=== PATIENT | female | born 1945 | race Caucasian/White ===

== ENCOUNTER → 2024-12-27 | Outpatient (CLI) | payer MEDICARE, SELFPAY ==
[2024-12-27 11:16] LABS: Color, Urine Yellow (Yellow); Glucose, Dipstick Normal (Normal); Ketone-Dipstick Negative (Negative); Leukocyte Esterase-Dipstick 25 /ul (Negative); Nitrite-Dipstick Positive (Negative); Occult Blood-Urine 25 /ul (Negative); Protein-Dipstick 30 mg/dl (Negative); Specific Gravity, Urine 1.010 (1.002-1.030); Urine Bilirubin Dipstick Negative (Negative)
== END | disposition home or self-care (01) ==
DX: R39.9 Unspecified symptoms and signs involving the genitourinary system (principal)
CPT/HCPCS: 81002; 87077; 87086; 87088

== ENCOUNTER 2025-03-15 08:23 | Emergency (ER) | payer MEDICARE, SELFPAY ==
[2025-03-15 08:26] VITALS: BP 159/70; PULSE 64; RESP 18; TEMP 36.6; O2SAT 98
[2025-03-15 08:28] VITALS: BMI 21.8
--- NOTE | 2025-03-15 08:40 | CT_ITS ---
PROCEDURE: BRAIN/HEAD WITHOUT CONTRAST 03/15/2025 REASON FOR EXAM: FALL TECHNIQUE: Procedure Code: CTBR Modality: CT Procedure: BRAIN/HEAD WITHOUT CONTRAST Coronal and Sagittal reconstruction series were provided. One or more dose reduction techniques were used (e.g., Automated exposure control, adjustment of the mA and/or kV according to patient size, use of iterative reconstruction technique. RADIATION DOSE SUMMARY: CTDlvol: Not provided. DLP: 1103.87 mGycm COMPARISON: None FINDINGS: Brain: Extensive low density in the deep cerebral white matter most likely represents advanced chronic small vessel ischemic disease. CSF Spaces: Moderate generalized cerebral atrophy Sinuses/Mastoids: Bones: No acute osseous abnormality. Left frontal extra-axial mass with calcification measuring up to 2.8 cm, representing a meningioma. Left forehead soft tissue contusion/hematoma. CT/Brain/Head without Contrast IMPRESSION: No acute intracranial abnormality. Left frontal extra-axial mass with calcific ation measuring up to 2.8 cm, representing a meningioma. Left forehead soft tissue contusion/hematoma. Reading Location: [facility]
--- NOTE | 2025-03-15 08:40 | EKG12_ITS ---
Test Reason : FALL Blood Pressure : */* mmHG Vent. Rate : 64 BPM Atrial Rate : 64 BPM P-R Int : 218 ms QRS Dur : 68 ms QT Int : 410 ms P-R-T Axes : 33 -2 29 degrees QTcB Int : 422 ms Sinus rhythm with 1st degree A-V block Otherwise normal ECG Confirmed by Сергей Barahona ([id number]), videotape editor ALEKSEY PINEDA ([id number]) on 03/18/2025 11:24:15 AM Also confirmed by Сергей Barahona ([id number]), videotape editor ALEKSEY PINEDA ([id number]) on 03/19/2025 10:11:46 AM Also confirmed by Сергей Barahona ([id number]), videotape editor ALEKSEY PINEDA ([id number]) on 03/19/2025 10:48:31 AM Referred By: Confirmed By: Сергей Barahona
--- NOTE | 2025-03-15 08:40 | CT_ITS ---
EXAM: CT Cervical Spine Without Intravenous Contrast CLINICAL INDICATION: FALL TECHNIQUE: Axial computed tomography images of the cervical spine without intravenous contrast. This CT exam was performed using one or more of the following dose reduction techniques: automated exposure control, adjustment of the mA and/or kV according to patient size, and/or use of iterative reconstruction technique. COMPARISON: No relevant prior studies available. FINDINGS: VERTEBRAE: Mild reversal cervical spine lordosis. Sclerosis of the left anterior arch of C5. Degenerative facet arthropathy throughout the cervical spine. No acute fracture. DISCS/SPINAL CANAL/NEURAL FORAMINA: Degenerative disc disease lower cervical spine. SOFT TISSUES: Unremarkable. CT/Spine Cervical without Contras IMPRESSION: 1. No acute fracture. 2. Degenerative changes cervical spine as described. Reading Location: [id number]
--- NOTE | 2025-03-15 08:42 | EDS_ITS ---
HPI HPI - Fall History of Present Illness Chief Complaint: Fall Detail of Chief Complaint: Fall Informant: patient and family Narrative Narrative: Patient presents to the emergency department after sustaining a fall this morning. Patient states that she just got in a hurry and lost her balance and fell. witnessed her fall from bed but he is wheelchair-bound so we could not help her. She was able to scoot to a chair and help herself up to a standing position. She had no loss of consciousness. She is not anticoagulated. Noted to have laceration to the left side of her nose and forehead hematoma. Per family member she has history of severe dementia. Patient has been more agitated over the last 4 days and has had decreased sleep. Primary care physician ordered risperidone for her which they have not picked up yet. She denies any chest pain or abdominal pain. Denies weakness or paresthesias in the extremities. [facility] Medical History (Updated 03/15/25 @ 10:[address] Alicia Guillen, ) Anxiety Depression Former smoker Dementia Allergy/AdvReac Type Severity Reaction Status Date / Time aspirin Allergy Intermediate Hives Verified 03/15/25 08:28 Social History Smoking Status: Former smoker ROS ROS ED Review of Systems ROS Unobtainable: other Constitutional Constitutional ED: Reports lethargy; Denies chills, fever(s), sweats or weight loss Eyes Eyes: Denies blurry vision, change in vision or diplopia ENT ENT ED: Denies rhinorrhea or sore throat Cardiovascular Cardiovascular: Denies chest pain, orthopnea or racing heartbeat Respiratory/Chest Respiratory/Chest: Denies cough, dyspnea, dyspnea on exertion, orthopnea or sputum Gastrointestinal Gastrointestinal: Denies abdominal pain, diarrhea, nausea or vomiting Genitourinary Genitourinary ED: Denies dysuria, hematuria or urinary frequency Musculoskeletal Musculoskeletal: Denies arthralgias, back pain, myalgias or neck pain Integumentary Reports other Details: Laceration to her left nose and hematoma left forehead ; Denies abscess, Abrasions or rash Neurologic Neurologic: Reports headache(s); Denies weakness Psychiatric Psychiatric: Denies anxiety, depression or suicidal thoughts Endocrine Endocrinology: Denies polydipsia, polyphagia or polyuria Hematologic/Lymphatic Hematologic/Lymphatic: Denies easy bleeding, easy bruising or lymphadenopathy Allergic/Immunologic Allergic/Immunologic ED: Denies mouth swelling, tongue swelling or urticaria EXAM Physical Exam Const Vital Signs: 03/15/25 08:26 03/15/25 09:11 03/15/25 09:59 Temperature 97.9 F Temperature Source Temporal Pulse Rate 64 62 Respiratory Rate 18 18 Respiratory Effort Normal Blood Pressure 159/70 H 143/65 H Blood Pressure Mean 99 91 Pulse Ox 98 97 Oxygen Delivery Method Room Air Room Air Room Air 03/15/25 10:47 Temperature 97.6 F L Temperature Source Pulse Rate 65 Respiratory Rate 18 Respiratory Effort Blood Pressure 156/67 H Blood Pressure Mean 96 Pulse Ox 100 Oxygen Delivery Method Positive well nourished and well developed General Appearance ED: well developed and NAD HEENT Reports TM's clear and moist mucous membranes HEENT Narrative: 1 cm laceration to the left side of the nose that is well-approximated with no active bleeding. Location is where the patient's eyeglasses sit on her nose. Mild bony tenderness without deformity. No septal hematoma. Patient also has a large hematoma left frontal forehead. normocephalic and atraumatic; Negative for trauma or tenderness Tympanic Membrane ED: Yes TM's clear Eyes PERRL and EOMs intact bilaterally General Eye ED: Negative for pale conjunctiva or scleral icterus Neck no lymphadenopathy, supple and no JVD Neck Narrative: Mild diffuse tenderness. No bony step-offs or depressions. General: Negative for tenderness Chest Wall inspection of chest normal and palpation of chest normal Chest: Negative for tenderness Resp normal respiratory effort and clear to auscultation bilaterally Effort and Inspection: Negative for respiratory distress or pain with movement Auscultation: Negative for rhonchi, wheezes or diminished lung sounds Cardio regular rate, regular rhythm, S1 normal heart sound, S2 normal heart sound and no murmurs Peripheral Pulses: pulses 2+ throughout GI normal to inspection, nondistended, normoactive bowel sounds, soft to palpation, non-tender, non-distended and no masses Back/Spine no CVA tenderness and no thoracic nor lumbar tenderness Extremity normal to inspection General Extremety ED: Negative for edema General Extremity: Negative for edema Neuro oriented x3, CN's II-XII intact bilaterally, no sensory deficits noted and gait normal Sensorium / Orientation: awake, alert, oriented to person, oriented to place and oriented to time Motor Exam: strength 5/5 throughout and strength abnormal Psych mental status grossly normal Skin no rashes or lesions noted and no wounds MDM MDM MDM Narrative Medical decision making narrative: Patient presents with mechanical fall. Evidence of trauma to her head. She is not anticoagulated. CT scan of the brain without contrast showed a meningioma to the left frontal region. No intracranial hemorrhage or skull fracture. She had a left forehead hematoma. CT of the C-spine show degenerative changes with no fractures. CBC with differential obtained showed a white count 6.8 with hemoglobin 13 and platelet count of 187. Chemistries unremarkable. Urinalysis negative for infection. I did use Dermabond skin glue to the left nasal superfi cial laceration. Recommended follow-up care with primary care physician within next 5 to 7 days. Family and patient unaware of the meningioma. Recommended outpatient follow-up initially with primary care physician and if need be with neurosurgery although she apparently has been asymptomatic. Lab Data Attestation: I reviewed the patient's lab results. Labs: Laboratory Results - last 24 hr 03/15/25 03/15/25 09:09 09:30 WBC 6.8 RBC 4.26 Hgb 13.0 Hct 38.9 MCV 91.3 MCH 30.5 MCHC 33.4 RDW Std Deviation 40.7 RDW Coeff of Esteban 12.2 Plt Count 187 MPV 10.0 Immature Gran % (Auto) 0.100 Neut % (Auto) 73.5 H Lymph % (Auto) 15.1 L [place] % (Auto) 5.6 Eos % (Auto) 5.1 H Baso % (Auto) 0.6 Absolute Neuts (auto) 5.0 Absolute Lymphs (auto) 1.03 Nucleated RBC % 0 Sodium 145 Potassium 3.9 Chloride 106 Carbon Dioxide 27.6 Anion Gap 11 BUN 27 H Creatinine 1.12 Estim Creat Clear Calc 35.45 L Est GFR (MDRD) Non-Af 49 L BUN/Creatinine Ratio 24.1 H Glucose 84 Calcium 10.3 Urine Color Yellow Urine Clarity Clear Urine pH 6.0 Ur Specific [place] 1.015 Urine Protein 15 H Urine Glucose (UA) Normal Urine Ketones Negative Urine Occult Blood 10 H Urine Nitrite Negative Urine Bilirubin Negative Urine Urobilinogen Normal Ur Leukocyte Esterase 500 H Urine RBC 0-5 SEEN Urine WBC 0-5 SEEN Ur Squamous Epith Cells 0-5 SEEN Urine Bacteria 1+ Urine Mucus 0 SEEN Radiography Diagnostic Testing: Clinical Impression(s) from Imaging Studies Brain CT 03/15/25 08:40 IMPRESSION: No acute intracranial abnormality. Left frontal extra-axial mass with calcification measuring up to 2.8 cm, representing a meningioma. Left forehead soft tissue contusion/hematoma. Reading Location: [facility] Cervical Spine CT 03/15/25 08:40 IMPRESSION: 1. No acute fracture. 2. Degenerative changes cervical spine as described. Reading Location: [facility] Chest X-Ray 03/15/25 10:00 IMPRESSION: No acute cardiopulmonary process. Reading Location: [facility] 1 view chest x-ray obtained interpreted by myself as no evidence of infiltrate or pneumothorax or acute disease process. Radiology in agreement. EKG Initial EKG: Attestation: I personally reviewed and interpreted this EKG as follows: Comments: Sinus rhythm with rate of 64 bpm with first-degree AV block Discharge Plan Triage Chief Complaint: Fall ED Provider: Alicia Guillen Dx/Rx/DC Orders Clinical Impression: Fall, Closed head injury, Contusion of face, Dementia Instructions: ED CONTUSION Face [w/ Wake Up], ED Mechanical Fall, ED Fall with Uncertain Cause, ED Head Injury (Adult) Primary Care Provider: Aman Phipps Referrals: Aman Phipps MD [Primary Care Provider, Internal Medicine] Activity Restrictions/Additional Instructions: Follow-up with primary care physician within the next 5 to 7 days for Print Language: Maltese Disposition Disposition: Home, Self Care Discharge Date/Time: 03/15/25 10:51
[2025-03-15 09:16] LABS: Mucous, Urine 0 SEEN /hpf (<or=2+)
[2025-03-15 09:18] LABS: Color, Urine Yellow (Yellow); Glucose, Dipstick Normal (Normal); Ketone-Dipstick Negative (Negative); Leukocyte Esterase-Dipstick 500 /ul (Negative); Nitrite-Dipstick Negative (Negative); Occult Blood-Urine 10 /ul (Negative); Protein-Dipstick 15 mg/dl (Negative); Specific Gravity, Urine 1.015 (1.002-1.030); Urine Bilirubin Dipstick Negative (Negative)
[2025-03-15 09:26] LABS: Red Blood Cells-Urine 0-5 SEEN /hpf (0-5); Squamous Epithelial Cells - UA 0-5 SEEN /hpf (5-10)
[2025-03-15 09:41] LABS: Hematocrit 38.9 % (37-47); Hemoglobin 13.0 g/dL (12.0-15.0); Immature Granulocytes Count 0.010 X10^3/uL (0.0-0.0); Mean Corp Hgb Conc 33.4 g/dL (32-36); Mean Corpuscular Volume 91.3 fL (81-99); Mean Platelet Vol. 10.0 fl (6.2-12.0); NRBC Flagged by Analyzer 0 % (0-5); Platelet Count 187 K/mm3 (150-450); RBC Distribution Width CV 12.2 % (11.6-14.6); RBC Distribution Width SD 40.7 fl (35.1-43.9); Red Blood Count 4.26 M/mm3 (4.2-5.4); White Blood Count 6.8 K/mm3 (4.4-11.0)
[2025-03-15 09:59] VITALS: BP 143/65; PULSE 62; RESP 18; O2SAT 97
--- NOTE | 2025-03-15 10:00 | RAD_ITS ---
EXAM: XR Chest, 1 View CLINICAL INDICATION: FALL TECHNIQUE: Frontal view of the chest. COMPARISON: No relevant prior studies available. FINDINGS: LUNGS AND PLEURAL SPACES: Unremarkable. No consolidation. No pneumothorax. HEART: Unremarkable. No cardiomegaly. MEDIASTINUM: Unremarkable. Normal mediastinal contour. BONES/JOINTS: Unremarkable. No acute fracture. RAD/Chest 1 View (Portable) IMPRESSION: No acute cardiopulmonary process. Reading Location: [id number]
[2025-03-15 10:17] LABS: Anion Gap 11 (5-15); BUN 27 mg/dL (4-19); BUN/Creat Ratio 24.1 RATIO (10-20); Calcium,Total 10.3 mg/dL (7.6-11.0); Carbon Dioxide 27.6 mmol/L (21.0-32.0); Chloride 106 mmol/L (98-108); Estimated Creatinine Clearance 35.45 ml/min (50-250); Glucose 84 mg/dL (70-99); Potassium 3.9 mmol/L (3.3-5.1)
[2025-03-15 10:47] VITALS: BP 156/67; PULSE 65; RESP 18; TEMP 36.4; O2SAT 100
== END 2025-03-15 10:51 | disposition home or self-care (01) ==
LOC: ED 08:57
PROVIDERS: Emergency Provider Emergency Medicine; PCP Internal Medicine; Visit Provider Emergency Medicine
DX: S01.21XA Laceration without foreign body of nose, initial encounter (principal); F03.90 Unspecified dementia, unspecified severity, without behavioral disturbance, psychotic disturbance, mood disturbance, and anxiety; W19.XXXA Unspecified fall, initial encounter; Z87.891 Personal history of nicotine dependence
CPT/HCPCS: 12011; 70450; 71045; 72125; 80048; 81001; 85025; 87086; 87088; 90715; 93005; 99283; A4216